=== PATIENT | female | born 1980 | race Two or more races ===

== ENCOUNTER → 2025-04-21 | Outpatient (CLI) | payer MEDICAID, SELFPAY ==
--- NOTE | 2025-04-21 09:24 | XR_ITS ---
Examination: Transvaginal ultrasound of the pelvis, complete Technique: Transvaginal sonographic images pelvis performed using victor scale imaging Exam date and time: April 21, 2025, 10:00 a.m INDICATIONS: Pelvic pain beginning 6 months ago FINDINGS: Uterus 9.7 cm endometrial stripe 1.2 cm No uterine mass or intrauterine gestation. Ovaries obscured by bowel gas IMPRESSION: No uterine mass or intrauterine gestation.
--- NOTE | 2025-04-21 09:24 | XR_ITS ---
Examination: Pelvic ultrasound, transabdominal, complete Technique: Transabdominal ultrasound of the pelvis performed using grayscale imaging Date and time of exam: April 21, 2025, 10:00 a.m. INDICATIONS: Pelvic pain beginning 6 months ago FINDINGS: Uterus 10.6 cm anterior uterine body mass 16 x 14 x 17 mm. Endometrial stripe 13 mm Right ovary 2.1 cm arterial flow. Left ovary 2.5 cm arterial flow 10 mm follicular cyst IMPRESSION: Small uterine area of fibroid degeneration 16 x 14 x 17 mm
== END | disposition home or self-care (01) ==
PROVIDERS: PCP Physician Assistant
DX: D25.9 Leiomyoma of uterus, unspecified (principal)
CPT/HCPCS: 76830; 76856